=== PATIENT | female | born 1995 | race Hispanic/Latino ===

== ENCOUNTER 2017-06-18 22:20 | Emergency (ER) | payer OTHER ==
[~2017-06-18] VITALS: Ht 157.5 cm; Wt 86.4 kg
[2017-06-18 22:23] VITALS: BP 161/98; PULSE 100; RESP 12; O2SAT 100
--- NOTE | 2017-06-18 22:38 | ED.REPORT ---
HPI- Female Date of Service Jun 18, 2017 ED Provider: Landen Bolton DO Pt is a 2 week 22 year old female who presents to the ED complaining of cramping pelvic pain onset prior to arrival. The pt reports vaginal bleeding , stating that she passed tissue 1 hour prior to her arrival. She denies fever, nausea, vomiting, and diarrhea. Nursing Notes Stated Complaint: POSS MISCARRIAGE Chief Complaint: Female Abdominal Pain Nursing Notes Reviewed: Yes Allergies: Coded Allergies: No Known Allergies (Unverified , 06/18/17) General Time Seen by MD: 22:37 Chief Complaint Pelvic pain Hx Obtained From: Patient Arrived By: Walk-in Sudden in Onset?: No Onset Occurred: Just prior to arrival Symptom Duration: Since onset Quality: Cramping, Painful (Pelvic) Radiation: Does not radiate Severity: Current: Moderate Severity: Maximum: Moderate Recent Healthcare: No recent doctor visit, No recent hospitalization Similar Sx Previous: No Past Medical History Past Medical History 2 weeks - 06/18/17 Past Surgical History None reported Smoking History Unknown if Ever Smoker Social History Other Social History: Good social support Ambulatory Status Independent Review of Systems Constitutional: Denies: Fever GI: Reports: Abdominal pain, Denies: Diarrhea, Nausea, Vomiting Complete sys rev & neg: except as marked. Physical Exam Initial Vital Signs Vital Signs (First) Date Time Temp Pulse Resp B/P Pulse Ox O2 Delivery O2 Flow Rate FiO2 06/18/17 22:23 36.8 100 12 161/98 100 Room Air Initial VS: Reviewed Head / Eyes: Atraumatic, Normocephalic Neck: Supple, Full range of motion Respiratory: Breath sounds normal, Clear to auscultation, No respiratory distress Cardiovascular: Regular rate & rhythm, Heart sounds normal, Intact distal pulses Abdomen / GI: Soft, Non-tender Extremities: Vascular intact, Neuro intact Skin: Warm, Dry, No cyanosis Neurologic: Alert, Oriented, Nonfocal Psychiatric: Mood/affect normal, Behavior normal Female Genitourinary: Exam deferred General/Constitutional: Awake, Alert Interpretation & Diagnostics US TRANSVAGINAL: CONCLUSION: Mildly thickened and heterogeneous endometrium with mild increased vascularity. A small amount of retained products cannot be completely excluded. No gross mass identified. Transmitted to the ED at 23:37 by Antione Olmos M.D. Lab Results Interpretation Result Diagram: 06/18/17 230006/18/17 230 Test 06/18/17 23:01 White Blood Count 12.6th/mm3 (3.8-10.1) Red Blood Count 4.36mil/mm3 (3.90-5.20) Hemoglobin 12.6g/dL (12.0-15.6) Hematocrit 37.5% (35.0-46.0) Mean Corpuscular Volume 86.0fL (81-100) Mean Corpuscular Hemoglobin 28.9pg (27.0-35.0) Mean Corpuscular Hemoglobin Concent 33.6% (32.0-37.0) Red Cell Distribution Width 12.4% (12.3-15.4) Platelet Count 268bil/L (150-400) Neutrophils (%) (Auto) 75.0% (40-74) Lymphocytes (%) (Auto) 17.6% (14-46) Monocytes (%) (Auto) 6.1% (4-12) Eosinophils (%) (Auto) 0.9% (0-5) Basophils (%) (Auto) 0.2% (0-3) Sodium Level 139mEq/L (134-144) Potassium Level 3.7mEq/L (3.5-5.2) Chloride Level 103mEq/L (97-108) Carbon Dioxide Level 21mmol/L (18-29) Blood Urea Nitrogen 8mg/dL (6-20) Creatinine 0.57mg/dL (0.57-1.00) Estimat Glomerular Filtration Rate 194mL/min (>59) Glucose Level 108mg/dL (60-99) Calcium Level 8.8mg/dL (8.5-10.1) Total Bilirubin 0.3mg/dL (0.0-1.2) Aspartate Amino Transf (AST/SGOT) 12U/L (0-50) Alanine Aminotransferase (ALT/SGPT) 12U/L (0-32) Alkaline Phosphatase 85U/L (25-150) Total Protein 7.6g/dL (6.4-8.4) Albumin 4.3g/dL (3.4-5.0) HCG Beta Subunit 3816mIU/mL Hold Garcia Top Tube Received (Received) Re-Eval/Medical Decision Source of Hx: Old records Re-Evaluation/Progress #1: Time of Eval: 22:54 Re-Evaluation/Progress Note: The nurse had what appears to be products of conception. The pt reports that she is now feeling less pain. Informed pt of plan for labs and US. She agrees with plan. All questions addressed. Re-Evaluation/Progress #2: Time of Eval: 23:57 Re-Evaluation/Progress Note: Pt rechecked. Informed pt of US results indicating incomplete and plan for discharge. Pt understands and agrees with plan. All questions addressed. Counseled Regarding: Diagnosis, Need for follow-up, When/why to return to ED Discharge & Departure Impression: Primary Impression: Spontaneous in first trimester Disposition: Home Discharge Condition All VS Reviewed: Yes Condition: Stable Patient Instructions: Miscarriage (ED) Additional Instructions: The ultrasound does not demonstrate any products of conception. Most likely you have a miscarriage. Close follow-up is essential. Follow-up hCG testing is recommended. Call your doctor tomorrow for follow-up later this week. Tylenol or Motrin as directed for pain. Return if any problems or any new or worrisome symptoms. Return if you soak a pad an hour for 3 consecutive hours. Referrals: Carina Riojas MD (PCP) Sana Jesus MD Scribilia Attestation Portions of this note were transcribed by Deborah Watkins. I, Dr. Bolton personally performed the history, physical exam and medical decision-making; I reviewed and confirmed the accuracy of the information in the transcribed note. Signed by : Sameer Chen, 06/18/17. copies to: Carina Riojas MD, Todd P DO Jun 18, 2017 22:37 Deborah Valenzuela Jun 18, 2017 23:00
[2017-06-18 23:07] LABS: BASOPHILS % (AUTO) 0.2 % (0-3); EOSINOPHILS % (AUTO) 0.9 % (0-5); MONOCYTES % (AUTO) 6.1 % (4-12); Mean Corpuscular Hemoglobin 28.9 pg (27.0-35.0); Platelet Count 268 bil/L (150-400)
[2017-06-19 00:08] VITALS: BP 132/58; PULSE 89; RESP 16; O2SAT 99
--- NOTE | 2017-06-19 08:51 | DRSVH ---
PROCEDURE: US PELVIC SONOGRAM + TRANSVAGINAL SONOGRAM INDICATIONS: , PAIN, BLEEDING TECHNIQUE: Real-time scanning was performed of the pelvic organs, with image documentation. Additional endovagi nal scanning was necessary due to incomplete visualization of the adnexal and endometrial structures by transabdominal scanning. COMPARISON: None. FINDINGS: (orthogonal measurements) Uterus size: 7.69 cm, 3.93 cm, 5.02 cm Endometrium thickness: 1.07 cm Right ovary size: 3.02 cm, 2.02 cm, 2.82 cm Left ovary size: 2.42 cm, 1.56 cm, 2.67 cm Transabdominal scanning: Limited scanning through the kidneys shows no hydronephrosis. No pathologi c free abdominal or pelvic fluid. Endovaginal scanning: Uterus: Uterus is normal in size and appearance. Endometrium is diffusely heterogeneous and thicken ed although no masslike focus is seen. There is hyperemia. Ovaries: Within normal physiologic limits. IMPRESSION: Mildly thickened, hyperemic and heterogeneous endometrium however no discrete focal mass to suggest r etained products of conception. Technically, small amount of retained products cannot be entirely exc luded, therefore please correlate clinically. Dictated by: Arya Lester M.D. on 06/19/2017 at 8:46 Approved by: Arya Lester M.D. on 06/19/2017 at 8:49
== END 2017-06-19 00:08 | disposition home or self-care (01) ==
LOC: SED 22:20
DX: O03.9 Complete or unspecified spontaneous abortion without complication (principal); Z3A.01 Less than 8 weeks gestation of pregnancy